=== PATIENT | male | born 1945 | race Caucasian/White ===

== ENCOUNTER 2017-07-06 15:20 | Observation (INO) | payer MEDICARE ==
[~2017-07-06] VITALS: Ht 180.3 cm; Wt 82.7 kg
[2017-07-06 15:32] VITALS: BP 188/91; PULSE 83; RESP 16; TEMP 98.7; O2SAT 96
[2017-07-06] MEDS ORDERED: SODIUM CHLORIDE 0.9% FLUSH 10 ML FLUSH IV FLUSH PRN ×2 (15:45→18:45)
[2017-07-06 16:02] LABS: AUTOMATED NEUTROPHIL # 7.4 TH/MM3 (1.8-7.7); BASOPHIL # 0.1 TH/MM3 (0-0.2); BASOPHIL % 0.8 % (0.0-2.0); EOSINOPHIL # 0.1 TH/MM3 (0-0.4); EOSINOPHIL % 1.2 % (0.0-4.0); HEMATOCRIT 43.7 % (39.0-51.0); LYMPH % 12.3 % (9.0-44.0); LYMPHOCYTE # 1.2 TH/MM3 (1.0-4.8); MEAN CELL VOLUME 89.5 FL (80.0-100.0); MEAN CORPUSCULAR HEMOGLOBIN 29.8 PG (27.0-34.0); MEAN CORPUSCULAR HGB CONC 33.3 % (32.0-36.0); MONO % 6.9 % (0.0-8.0); NEUT % 78.8 % (16.0-70.0); PLATELET COUNT 188 TH/MM3 (150-450); RED BLOOD COUNT 4.88 MIL/MM3 (4.50-5.90); RED CELL DISTRIBUTION WIDTH 12.1 % (11.6-17.2); WHITE BLOOD COUNT 9.4 TH/MM3 (4.0-11.0)
--- NOTE | 2017-07-06 16:10 | PD ---
HPI Chief Complaint: Abdominal Pain Time Seen by Provider: 15:47 Travel History International Travel<30 days: No Contact w/Intl Traveler<30days: No Traveled to known affect area: No History of Present Illness HPI Patient is a 72-year-old male who presents to emergency room with complaints of lower abdominal pain and constipation. Patient reports that his pain began this morning, reports that he had 3 small episodes of diarrhea and was unable to have a full bowel movement. Patient reports that he has mild to moderate lower abdominal crampy pain. Pain does not radiate and is constant in nature. Patient reports that the last time this happened was in September when he was diagnosed with bowel perforation due to ruptured diverticulitis. He reports that at that time, he was seen at [facility]. 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 Reports concern for possible bowel perforation or diverticulitis at this time. Patient denies any fevers or chills, patient denies any chest pain or shortness of breath. Patient reports nausea with no vomiting. PFSH Past Medical History Narrative Medical hx of diveriticulitis Hypertension: Yes Past Surgical History Prostatectomy: Yes Social History Alcohol Use: No Tobacco Use: No Substance Use: No Allergies-Medications (Allergen,Severity, Reaction): Coded Allergies: Penicillins (Verified Allergy, Severe, Anaphylaxis, 07/06/17) cyclobenzaprine (Verified Allergy, Severe, ABD PROBLEMS, 07/06/17) Reported Meds & Prescriptions Reported Meds & Active Scripts Active Reported Metamucil Original Texture (Psyllium Hydrophilic Mucilloid) 3.4 Gram/7 Gram Pow 1 Scoop PO DAILY PRN 1 rounded TEASPOON in 8 oz of liquid at the first sign of irregularity. Acidophilus (Lactobacillus Acidophilus) 500 Million Cell Tablet 1 Finasteride 5 Mg Tab 5 Mg PO DAILY Do not crush. Multi For Him 50+ (Multiple Vitamins W/ Minerals) 0.4 Mg-2 Mg-250 Mcg Tab Ranitidine (Ranitidine HCl) 150 Mg Tab 150 Mg PO DAILY Tamsulosin (Tamsulosin HCl) 0.4 Mg Cap 0.4 Mg PO HS Lisinopril 10 Mg Tab 10 Mg PO DAILY Review of Systems General / Constitutional: No: Fever, Chills Eyes: No: Visual changes HENT: No: Headaches Cardiovascular: No: Chest Pain or Discomfort Respiratory: No: Shortness of Breath Gastrointestinal: Positive: Nausea, Abdominal Pain, Constipation, No: Vomiting , Diarrhea Genitourinary: No: Dysuria Musculoskeletal: No: Pain Skin: No Rash Neurologic: No: Weakness Psychiatric: No: Depression Endocrine: No: Polydipsia Hematologic/Lymphatic: No: Easy Bruising Physical Exam Narrative GENERAL: moderate distress SKIN: Focused skin assessment warm/dry. HEAD: Atraumatic. Normocephalic. EYES: Pupils equal and round. No scleral icterus. No injection or drainage. ENT: No nasal bleeding or discharge. Mucous membranes pink and moist. NECK: Trachea midline. No JVD. CARDIOVASCULAR: Regular rate and rhythm. No murmur appreciated. RESPIRATORY: No accessory muscle use. Clear to auscultation. Breath sounds equal bilaterally. GASTROINTESTINAL: Abdomen soft, increased tenderness to lower abdomen, nondistended. Hepatic and splenic margins not palpable. MUSCULOSKELETAL: No obvious deformities. No clubbing. No cyanosis. No edema. NEUROLOGICAL: Awake and alert. No obvious cranial nerve deficits. Motor grossly within normal limits. Normal speech. PSYCHIATRIC: Appropriate mood and affect; insight and judgment normal. Data Data Last Documented VS Vital Signs Date Time Temp Pulse Resp B/P (MAP) Pulse Ox O2 Delivery O2 Flow Rate FiO2 07/06/17 15:32 98.7 83 16 188/91 (123) 96 Orders Orders Complete Blood Count With Diff (07/06/17 15:41) Comprehensive Metabolic Panel (07/06/17 15:41) Lipase (07/06/17 15:41) Prothrombin Time / Inr (Pt) (07/06/17 15:41) Act Partial Throm Time (Ptt) (07/06/17 15:41) Urinalysis - C+S If Indicated (07/06/17 15:41) Iv Access Insert/Monitor (07/06/17 15:41) Ecg Monitoring (07/06/17 15:41) NPO (07/06/17 15:41) Sodium Chloride 0.9% Flush (Ns Flush) (07/06/17 15:45) Ct Abd/Pel W Iv Contrast(Rout) (07/06/17 15:58) Chest, Single Ap (07/06/17 16:09) Diatrizoate Liq ( Gastroview Liq) (07/06/17 16:13) Oral Contrast - Adult (07/06/17 16:32) Iohexol 350 Inj (Omnipaque 350 Inj) (07/06/17 17:13) Ciprofloxacin 400 Mg Premix (Cipro 400 M (07/06/17 18:15) Metronidazole 500 Mg Inj (Flagyl 500 Mg (07/06/17 18:15) Admit Order (Ed Use Only) (07/06/17 18:38) Labs Laboratory Tests Test 07/06/17 15:50 07/06/17 16:54 White Blood Count 9.4 TH/MM3 Red Blood Count 4.88 MIL/MM3 Hemoglobin 14.5 GM/DL Hematocrit 43.7 % Mean Corpuscular Volume 89.5 FL Mean Corpuscular Hemoglobin 29.8 PG Mean Corpuscular Hemoglobin Concent 33.3 % Red Cell Distribution Width 12.1 % Platelet Count 188 TH/MM3 Mean Platelet Volume 7.8 FL Neutrophils (%) (Auto) 78.8 % Lymphocytes (%) (Auto) 12.3 % Monocytes (%) (Auto) 6.9 % Eosinophils (%) (Auto) 1.2 % Basophils (%) (Auto) 0.8 % Neutrophils # (Auto) 7.4 TH/MM3 Lymphocytes # (Auto) 1.2 TH/MM3 Monocytes # (Auto) 0.6 TH/MM3 Eosinophils # (Auto) 0.1 TH/MM3 Basophils # (Auto) 0.1 TH/MM3 CBC Comment DIFF FINAL Differential Comment Prothrombin Time 10.1 SEC Prothromb Time International Ratio 0.9 RATIO Activated Partial Thromboplast Time 27.3 SEC Blood Urea Nitrogen 19 MG/DL Creatinine 1.30 MG/DL Random Glucose 102 MG/DL Total Protein 7.1 GM/DL Albumin 3.6 GM/DL Calcium Level 8.8 MG/DL Alkaline Phosphatase 95 U/L Aspartate Amino Transf (AST/SGOT) 29 U/L Alanine Aminotransferase (ALT/SGPT) 42 U/L Total Bilirubin 0.6 MG/DL Sodium Level 139 MEQ/L Potassium Level 4.0 MEQ/L Chloride Level 105 MEQ/L Carbon Dioxide Level 27.8 MEQ/L Anion Gap 6 MEQ/L Estimat Glomerular Filtration Rate 54 ML/MIN Lipase 213 U/L Urine Color YELLOW Urine Turbidity CLEAR Urine pH 5.5 Urine Specific [place] 1.015 Urine Protein NEG mg/dL Urine Glucose (UA) NEG mg/dL Urine Ketones NEG mg/dL Urine Occult Blood SMALL Urine Nitrite NEG Urine Bilirubin NEG Urine Leukocyte Esterase NEG Urine RBC 0-3 /hpf Urine Squamous Epithelial Cells 0-5 /hpf Microscopic Urinalysis Comment CULT NOT INDICATED MDM Medical Decision Making Medical Screen Exam Complete: Yes Emergency Medical Condition: Yes Medical Record Reviewed: Yes Interpretation(s) Vital Signs Date Time Temp Pulse Resp B/P (MAP) Pulse Ox O2 Delivery O2 Flow Rate FiO2 07/06/17 15:32 98.7 83 16 188/91 (123) 96 Differential Diagnosis Differential includes diverticulitis, perforated bowel, electrolyte abnormality , cystitis Narrative Course Patient is a 72-year-old male with history of diverticulitis and perforated bowel in September who presents to ER with complaints of lower abdominal pain. Patient reports that he had 3 small bowel movements this morning and unable to have a complete bowel movement today. Patient reports crampy lower abdominal pain similar to when he had a perforated bowel in the past. Patient was placed on a environmental monitoring technician. CBC, CMP, UA ordered. X-ray of the chest ordered to evaluate for possible free air. CT the abdomen pelvis oral contrast ordered to evaluate for possible diverticulitis and bowel perforation Laboratory Tests Test 07/06/17 15:50 07/06/17 16:54 White Blood Count 9.4 TH/MM3 (4.0-11.0) Red Blood Count 4.88 MIL/MM3 (4.50-5.90) Hemoglobin 14.5 GM/DL (13.0-17.0) Hematocrit 43.7 % (39.0-51.0) Mean Corpuscular Volume 89.5 FL (80.0-100.0) Mean Corpuscular Hemoglobin 29.8 PG (27.0-34.0) Mean Corpuscular Hemoglobin Concent 33.3 % (32.0-36.0) Red Cell Distribution Width 12.1 % (11.6-17.2) Platelet Count 188 TH/MM3 (150-450) Mean Platelet Volume 7.8 FL (7.0-11.0) Neutrophils (%) (Auto) 78.8 % (16.0-70.0) Lymphocytes (%) (Auto) 12.3 % (9.0-44.0) Monocytes (%) (Auto) 6.9 % (0.0-8.0) Eosinophils (%) (Auto) 1.2 % (0.0-4.0) Basophils (%) (Auto) 0.8 % (0.0-2.0) Neutrophils # (Auto) 7.4 TH/MM3 (1.8-7.7) Lymphocytes # (Auto) 1.2 TH/MM3 (1.0-4.8) Monocytes # (Auto) 0.6 TH/MM3 (0-0.9) Eosinophils # (Auto) 0.1 TH/MM3 (0-0.4) Basophils # (Auto) 0.1 TH/MM3 (0-0.2) CBC Comment DIFF FINAL Differential Comment Prothrombin Time 10.1 SEC (9.8-11.6) Prothromb Time International Ratio 0.9 RATIO Activated Partial Thromboplast Time 27.3 SEC (24.3-30.1) Blood Urea Nitrogen 19 MG/DL (7-18) Creatinine 1.30 MG/DL (0.60-1.30) Random Glucose 102 MG/DL (74-106) Total Protein 7.1 GM/DL (6.4-8.2) Albumin 3.6 GM/DL (3.4-5.0) Calcium Level 8.8 MG/DL (8.5-10.1) Alkaline Phosphatase 95 U/L (45-117) Aspartate Amino Transf (AST/SGOT) 29 U/L (15-37) Alanine Aminotransferase (ALT/SGPT) 42 U/L (12-78) Total Bilirubin 0.6 MG/DL (0.2-1.0) Sodium Level 139 MEQ/L (136-145) Potassium Level 4.0 MEQ/L (3.5-5.1) Chloride Level 105 MEQ/L (98-107) Carbon Dioxide Level 27.8 MEQ/L (21.0-32.0) Anion Gap 6 MEQ/L (5-15) Estimat Glomerular Filtration Rate 54 ML/MIN (>89) Lipase 213 U/L (73-393) Urine Color YELLOW (YELLW/STRAW) Urine Turbidity CLEAR (CLEAR) Urine pH 5.5 (5.0-8.5) Urine Specific [place] 1.015 (1.002-1.035) Urine Protein NEG mg/dL (NEG-TRACE) Urine Glucose (UA) NEG mg/dL (NEG) Urine Ketones NEG mg/dL (NEG) Urine Occult Blood SMALL (NEG) Urine Nitrite NEG (NEG) Urine Bilirubin NEG (NEG) Urine Leukocyte Esterase NEG (NEG) Urine RBC 0-3 /hpf (0-3) Urine Squamous Epithelial Cells 0-5 /hpf (0-5) Microscopic Urinalysis Comment CULT NOT INDICATED Last Impressions Chest X-Ray 07/06/17 1609 Signed Impressions: Service Date/Time: Thursday, July 06, 2017 16:57 - CONCLUSION: No acute disease. Braden Rodriguez MD Abdomen/Pelvis CT 07/06/17 1558 Signed Impressions: Service Date/Time: Thursday, July 06, 2017 17:09 - CONCLUSION: 1. Sigmoid diverticulosis with acute diverticulitis in the proximal sigmoid colon. No evidence of pericolonic abscess. 2. Simple hepatic cysts. 3. No other significant abnormality. Bon Mari MD Patient with sigmoid diverticulosis with acute diverticulitis in the proximal colon. Patient uncomfortable to be discharged home as he lives by himself, patient is concern about possible bowel perforation with his diverticulitis. Patient was given Cipro as well as IV Flagyl. Patient will be admitted to medicine service for treatment of acute diverticulitis. Case reviewed with Dr. Bowden who accepts pt to service Diagnosis Primary Impression: Acute diverticulitis Admitting Information Admitting Physician Requests: Admit Joselin Tran DO Jul 06, 2017 16:10
[2017-07-06 16:13] LABS: CHLORIDE 105 MEQ/L (98-107); SODIUM (NA) 139 MEQ/L (136-145)
[2017-07-06] MEDS ORDERED: DIATRIZOATE MEGLUM/DIATRIZOATE SOD 9 ML CUP ONE (16:13)
[2017-07-06 16:17] LABS: ANION GAP 6 MEQ/L (5-15); APTT (PATIENT) 27.3 SEC (24.3-30.1); BICARBONATE 27.8 MEQ/L (21.0-32.0); BLOOD UREA NITROGEN 19 MG/DL (7-18); INTERNATIONAL NORMALIZED RATIO 0.9 RATIO; PROTHROMBIN TIME - PATIENT 10.1 SEC (9.8-11.6)
[2017-07-06 16:19] LABS: ALT (GPT) 42 U/L (12-78); AST (GOT) 29 U/L (15-37)
[2017-07-06 16:20] LABS: GLOMERULAR FILTRATION RATE 54 ML/MIN (>89)
[2017-07-06] MEDS ORDERED: META48.53 PO (16:20)
[2017-07-06] MEDS ORDERED: RANI150T PO (16:20)
[2017-07-06] MEDS ORDERED: TAMS0.4C4 PO (16:20)
[2017-07-06] MEDS ORDERED: FINA5TAB2 PO (16:20)
[2017-07-06] MEDS ORDERED: LISI10TA3 PO (16:20)
[2017-07-06] MEDS ORDERED: LACTTAB5 (16:20)
[2017-07-06] MEDS ORDERED: MULTTAB23 (16:20)
[2017-07-06 16:21] LABS: TOTAL BILIRUBIN ADULT 0.6 MG/DL (0.2-1.0)
[2017-07-06 16:22] LABS: ALKALINE PHOSPHATASE 95 U/L (45-117)
[2017-07-06 16:24] LABS: HEMO FLAGS DIFF FINAL
[2017-07-06 17:03] LABS: BLOOD, URINE SMALL (NEG); GLUCOSE,URINE NEG (NEG); KETONE, URINE NEG (NEG); NITRITE,URINE NEG (NEG); PH, URINE 5.5 (5.0-8.5)
[2017-07-06 17:13] LABS: URINE COLOR YELLOW (YELLW/STRAW)
[2017-07-06] MEDS ORDERED: IOHEXOL 350 MG/ML 10 ML VIAL (for RAD DIAG) IVCONTRAST ONE (17:13)
[2017-07-06 17:14] LABS: COMMENT (UR) CULT NOT INDICATED; CULTURE IF INDICATED CULT NOT INDICATED; RBC, URINE 0-3 /hpf (0-3); SQUAMOUS EPITHELIAL CELL URINE 0-5 /hpf (0-5)
--- NOTE | 2017-07-06 17:39 | RADRPT ---
EXAM DATE/TIME: 07/06/2017 17:09 [facility] COMPARISON: No previous studies available for comparison. INDICATIONS : Lower abdominal discomfort. IV CONTRAST: 95 cc Omnipaque 350 (iohexol) IV ORAL CONTRAST: Prescribed oral contrast ingested. RADIATION DOSE: 15.37 CTDIvol (mGy) MEDICAL HISTORY : Hypertension. Carcinoma, pancreas. SURGICAL HISTORY : Prostatectomy. ENCOUNTER: Initial ACUITY: 1 day PAIN SCALE: 4/10 LOCATION: lower quadrant TECHNIQUE: Volumetric scanning of the abdomen and pelvis was performed. Using automated exposure control and ad justment of the mA and/or kV according to patient size, radiation dose was kept as low as reasonably achievable to obtain optimal diagnostic quality images. DICOM format image data is available electro nically for review and comparison. FINDINGS: LOWER LUNGS: The visualized lower lungs are clear. LIVER: Homogeneous density without solid lesion. Several simple cysts identified throughout the liver. Ther e is no dilation of the biliary tree. No calcified gallstones. SPLEEN: Normal size without lesion. PANCREAS: Within normal limits. KIDNEYS: Normal in size and shape. There is no mass, stone or hydronephrosis. ADRENAL GLANDS: Within normal limits. VASCULAR: There is no aortic aneurysm. BOWEL/MESENTERY: Short segmental wall thickening with mild pericolonic inflammation and associated diverticula are see n in the proximal sigmoid colon. Gastrointestinal tract is otherwise unremarkable. ABDOMINAL WALL: Within normal limits. RETROPERITONEUM: There is no lymphadenopathy. BLADDER: No wall thickening or mass. REPRODUCTIVE: Within normal limits. INGUINAL: There is no lymphadenopathy or hernia. MUSCULOSKELETAL: Within normal limits for patient age. CONCLUSION: 1. Sigmoid diverticulosis with acute diverticulitis in the proximal sigmoid colon. No evidence of per icolonic abscess. 2. Simple hepatic cysts. 3. No other significant abnormality. Bon Mari MD on July 06, 2017 at 17:34 Board Certified Radiologist. This report was verified electronically.
--- NOTE | 2017-07-06 17:42 | RADRPT ---
EXAM DATE/TIME: 07/06/2017 16:57 [facility] COMPARISON: No previous studies available for comparison. INDICATIONS : Epigastric discomfort for a few days. MEDICAL HISTORY : Hypertension. Hypercholesterolemia. Carcinoma, prostatic. SURGICAL HISTORY : Prostatectomy. Paratrigeminal sympathectomy. ENCOUNTER: Initial ACUITY: 2 days PAIN SCORE: 4/10 LOCATION: Bilateral chest FINDINGS: A single view of the chest demonstrates the lungs to be symmetrically aerated without evidence of mas s, infiltrate or effusion. The cardiomediastinal contours are unremarkable. Osseous structures are intact. CONCLUSION: No acute disease. Braden Rodriguez MD on July 06, 2017 at 17:41 Board Certified Radiologist. This report was verified electronically.
[2017-07-06] MEDS ORDERED: metroNIDAZOLE 500 MG INJ 100 ML IV ONE (18:15)
[2017-07-06] MEDS ORDERED: CIPROFLOXACIN 400 MG PREMIX 200 ML IV ONE (18:15)
[2017-07-06] MEDS ORDERED: ACETAMINOPHEN/HYDROcodone 325 MG/5 MG TAB PO PRN (18:45)
[2017-07-06] MEDS ORDERED: MAGNESIUM HYDROXIDE SUSP 30 ML CUP PO PRN (18:45)
[2017-07-06] MEDS ORDERED: ACETAMINOPHEN/HYDROcodone 325 MG/10 MG TAB PO PRN (18:45)
[2017-07-06] MEDS ORDERED: NALOXONE HCL 0.4 MG/ML AMP IV PUSH PRN (18:45)
[2017-07-06] MEDS ORDERED: ONDANSETRON HCL 4 MG/2 ML VIAL IVP PRN (18:45)
[2017-07-06 19:15] VITALS: BP 148/72; PULSE 78; RESP 16; O2SAT 98
--- NOTE | 2017-07-06 19:29 | HHI.HP ---
[facility] Isaura Kilpatrick M.D. Admission Diagnosis sigmoid diverticulitis Diagnoses: (1) Acute diverticulitis Travel History International Travel<30 Days: No Contact w/Intl Traveler <30 Da: No Traveled to Known Affected Are: No History of Present Illness Mr. Mckeon is a 72 year old male. He came into the hospital today secondary to lower abdominal pain. This is been progressive over the last 2 days. He has a history of diverticulosis and has had diverticulitis with perforation in the past. He's concerned due to the weight feels that he may be at risk for another perforation. No fevers have occurred. Imaging shows no free air. Clinically he is symptomatic for diverticulitis and antibiotics have been started. Hypertension is another condition he has a baseline, he also has a past history of prostate cancer and has had a prostatectomy for this.. No other medical conditions reported. No other complaints tonight. Review of Systems Constitutional: DENIES: Fatigue, Fever, Weight gain, Weight loss, Chills Eyes: DENIES: Blurred vision, Diplopia, Eye inflammation, Eye pain Ears, nose, mouth, throat: DENIES: Tinnitus, Hearing loss, Vertigo Respiratory: DENIES: Apneas, Wheezing, Shortness of breath Cardiovascular: DENIES: Chest pain, Palpitations, Syncope Gastrointestinal: COMPLAINS OF: Abdominal pain, DENIES: Black stools, Bloody stools, Diarrhea Musculoskeletal: DENIES: Joint pain, Muscle aches, Stiffness, Joint Swelling Integumentary: DENIES: Abnormal pigmentation, Nail changes, Pruritus, Rash Hematologic/lymphatic: DENIES: Bruising, Lymphadenopathy Immunologic/allergic: DENIES: Eczema, Urticaria Neurologic: DENIES: Abnormal gait, Headache, Paresthesias Psychiatric: DENIES: Anxiety, Confusion, Hallucinations Past Family Social History Past Medical History Hypertension Diverticulosis History of diverticulitis perforation Prostate cancer history Past Surgical History Prostatectomy Reported Medications Reported Meds & Active Scripts Active Reported Metamucil Original Texture (Psyllium Hydrophilic Mucilloid) 3.4 Gram/7 Gram Pow 1 Scoop PO DAILY PRN 1 rounded TEASPOON in 8 oz of liquid at the first sign of irregularity. Acidophilus (Lactobacillus Acidophilus) 500 Million Cell Tablet 1 Finasteride 5 Mg Tab 5 Mg PO DAILY Do not crush. Multi For Him 50+ (Multiple Vitamins W/ Minerals) 0.4 Mg-2 Mg-250 Mcg Tab Ranitidine (Ranitidine HCl) 150 Mg Tab 150 Mg PO DAILY Tamsulosin (Tamsulosin HCl) 0.4 Mg Cap 0.4 Mg PO HS Lisinopril 10 Mg Tab 10 Mg PO DAILY Allergies: Coded Allergies: Penicillins (Verified Allergy, Severe, Anaphylaxis, 07/06/17) cyclobenzaprine (Verified Allergy, Severe, ABD PROBLEMS, 07/06/17) Family History Coronary artery disease and Alzheimer's and father CVA and mother Diabetes mellitus type 2 in both of his brothers Social History No past history of smoking No past history of alcohol abuse No illicit drug abuse Physical Exam Vital Signs Vital Signs Date Time Temp Pulse Resp B/P (MAP) Pulse Ox O2 Delivery O2 Flow Rate FiO2 07/06/17 19:15 78 16 148/72 (97) 98 Room Air 07/06/17 15:32 98.7 83 16 188/91 (123) 96 Physical Exam GENERAL: NAD, A&Ox3 HEAD: Normocephalic. NECK: Supple, trachea midline. No lymphadenopathy. EYES: No scleral icterus. No injection or drainage. CARDIOVASCULAR: Regular rate and rhythm without murmurs, gallops, or rubs. RESPIRATORY: Breath sounds equal bilaterally. No accessory muscle use. GASTROINTESTINAL: Abdomen soft. Moderately distended lower abdomen. Tenderness subumbilically with palpation. MUSCULOSKELETAL: No cyanosis, or edema. SKIN: Warm and dry. NEURO: No focal neurological deficitis. Laboratory Laboratory Tests Test 07/06/17 15:50 07/06/17 16:54 White Blood Count 9.4 Red Blood Count 4.88 Hemoglobin 14.5 Hematocrit 43.7 Mean Corpuscular Volume 89.5 Mean Corpuscular Hemoglobin 29.8 Mean Corpuscular Hemoglobin Concent 33.3 Red Cell Distribution Width 12.1 Platelet Count 188 Mean Platelet Volume 7.8 Neutrophils (%) (Auto) 78.8 Lymphocytes (%) (Auto) 12.3 Monocytes (%) (Auto) 6.9 Eosinophils (%) (Auto) 1.2 Basophils (%) (Auto) 0.8 Neutrophils # (Auto) 7.4 Lymphocytes # (Auto) 1.2 Monocytes # (Auto) 0.6 Eosinophils # (Auto) 0.1 Basophils # (Auto) 0.1 CBC Comment DIFF FINAL Differential Comment Prothrombin Time 10.1 Prothromb Time International Ratio 0.9 Activated Partial Thromboplast Time 27.3 Blood Urea Nitrogen 19 Creatinine 1.30 Random Glucose 102 Total Protein 7.1 Albumin 3.6 Calcium Level 8.8 Alkaline Phosphatase 95 Aspartate Amino Transf (AST/SGOT) 29 Alanine Aminotransferase (ALT/SGPT) 42 Total Bilirubin 0.6 Sodium Level 139 Potassium Level 4.0 Chloride Level 105 Carbon Dioxide Level 27.8 Anion Gap 6 Estimat Glomerular Filtration Rate 54 Lipase 213 Urine Color YELLOW Urine Turbidity CLEAR Urine pH 5.5 Urine Specific [place] 1.015 Urine Protein NEG Urine Glucose (UA) NEG Urine Ketones NEG Urine Occult Blood SMALL Urine Nitrite NEG Urine Bilirubin NEG Urine Leukocyte Esterase NEG Urine RBC 0-3 Urine Squamous Epithelial Cells 0-5 Microscopic Urinalysis Comment CULT NOT INDICATED Result Diagram: 07/06/17 [id number] Caprini VTE Risk Assessment Caprini VTE Risk Assessment: No/Low Risk (score <= 1) VTE Pharm Contraindication: High risk for bleeding Caprini Risk Assessment Model Point Value = 1 Point Value = 2 Point Value = 3 Point Value = 5 Age 41-60 Minor surgery BMI > 25 kg/m2 Swollen legs Varicose veins or History of unexplained or recurrent spontaneous Oral contraceptives or hormone replacement Sepsis (< 1 month) Serious lung disease, including pneumonia (< 1 month) Abnormal pulmonary function Acute myocardial infarction Congestive heart failure (< 1 month) History of inflammatory bowel disease Medical patient at bed rest Age 61-74 Arthroscopic surgery Major open surgery (> 45 min) Laparoscopic surgery (> 45 min) Malignancy Confined to bed (> 72 hours) Immobilizing plaster cast Central venous access Age >= 75 History of VTE Family history of VTE Factor V Leiden Prothrombin [id number] Lupus anticoagulant Anticardiolipin antibodies Elevated serum homocysteine Heparin-induced thrombocytopenia Other congenital or acquired thrombophilia Stroke (< 1 month) Elective arthroplasty Hip, pelvis, or leg fracture Acute spinal cord injury (< 1 month) Prophylaxis Regimen Total Risk Factor Score Risk Level Prophylaxis Regimen 0-1 Low Early ambulation 2 Moderate Order ONE of the following: *Sequential Compression Device (SCD) *Heparin 5000 units SQ BID 3-4 Higher Order ONE of the following medications: *Heparin 5000 units SQ TID *Enoxaparin/Lovenox 40 mg SQ daily (WT < 150 kg, CrCl > 30 mL/min) *Enoxaparin/Lovenox 30 mg SQ daily (WT < 150 kg, CrCl > 10-29 mL/min) *Enoxaparin/Lovenox 30 mg SQ BID (WT < 150 kg, CrCl > 30 mL/min) AND/OR *Sequential Compression Device (SCD) 5 or more Highest Order ONE of the following medications: *Heparin 5000 units SQ TID (Preferred with Epidurals) *Enoxaparin/Lovenox 40 mg SQ daily (WT < 150 kg, CrCl > 30 mL/min) *Enoxaparin/Lovenox 30 mg SQ daily (WT < 150 kg, CrCl > 10-29 mL/min) *Enoxaparin/Lovenox 30 mg SQ BID (WT < 150 kg, CrCl > 30 mL/min) AND *Sequential Compression Device (SCD) Assessment and Plan Problem List: (1) Acute diverticulitis ICD Code: K57.92 - Diverticulitis of intestine, part unspecified, without perforation or abscess without bleeding Status: Acute Assessment and Plan Assessment and plan 72-year-old male admitted secondary to acute diverticulitis and hypertensive urgency Acute diverticulitis Ciprofloxacin Metronidazole Monitor clinically for improvement Liquid diet for now Probiotics Hypertensive urgency on hypertension Continue baseline treatments Added IV enalapril as needed Monitor blood pressures History of prostate cancer Follows in outpatient DVT prophylaxis SCDs, due to bleeding risk Aryan Bowden MD Jul 06, 2017 19:29
[2017-07-06] MEDS ORDERED: ENALAPRILAT 1.25 MG/ML VIAL IV PUSH PRN (19:30)
[2017-07-06] MEDS ORDERED: TAMSULOSIN HCL 0.4 MG CAP PO SCH (21:00)
[2017-07-06 21:32] VITALS: BP 175/85
[2017-07-06] MEDS: FAMOTIDINE 20 MG TAB PO SCH (21:34)
[2017-07-06] MEDS: PSYLLIUM FIBER SF/GF 6 GM POWD PKT PO SCH (21:34)
[2017-07-06] MEDS: SODIUM CHLORIDE 0.9% FLUSH 10 ML FLUSH IV FLUSH SCH (21:35)
[2017-07-06 22:00] VITALS: BP 174/96; O2SAT 93
[2017-07-06 23:00] VITALS: BP 147/81
[2017-07-07] VITALS: TEMP 98.6
[2017-07-07] MEDS: CIPROFLOXACIN 400 MG PREMIX 200 ML IV SCH ×2 (02:20→09:51)
[2017-07-07 03:53] VITALS: BP 142/79
[2017-07-07 04:00] VITALS: TEMP 98.9
[2017-07-07] MEDS: metroNIDAZOLE 500 MG INJ 100 ML IV SCH ×2 (04:25→12:22)
[2017-07-07] MEDS ORDERED: ACETAMINOPHEN 325 MG TAB PO ONE (04:30)
[2017-07-07 04:51] LABS: AUTOMATED NEUTROPHIL # 5.4 TH/MM3 (1.8-7.7); BASOPHIL % 0.5 % (0.0-2.0); EOSINOPHIL # 0.1 TH/MM3 (0-0.4); HEMATOCRIT 41.8 % (39.0-51.0); HEMO FLAGS DIFF FINAL; LYMPH % 14.1 % (9.0-44.0); MEAN CELL VOLUME 91.1 FL (80.0-100.0); MEAN CORPUSCULAR HEMOGLOBIN 30.8 PG (27.0-34.0); MEAN CORPUSCULAR HGB CONC 33.8 % (32.0-36.0); NEUT % 73.4 % (16.0-70.0); PLATELET COUNT 171 TH/MM3 (150-450); RED BLOOD COUNT 4.58 MIL/MM3 (4.50-5.90); RED CELL DISTRIBUTION WIDTH 12.3 % (11.6-17.2); WHITE BLOOD COUNT 7.3 TH/MM3 (4.0-11.0)
[2017-07-07 04:57] LABS: CHLORIDE 104 MEQ/L (98-107); POTASSIUM 3.8 MEQ/L (3.5-5.1); SODIUM (NA) 139 MEQ/L (136-145)
[2017-07-07 05:19] LABS: ALKALINE PHOSPHATASE 74 U/L (45-117); ALT (GPT) 33 U/L (12-78); ANION GAP 6 MEQ/L (5-15); AST (GOT) 19 U/L (15-37); BICARBONATE 29.5 MEQ/L (21.0-32.0); BLOOD UREA NITROGEN 15 MG/DL (7-18); GLOMERULAR FILTRATION RATE 66 ML/MIN (>89); TOTAL BILIRUBIN ADULT 1.2 MG/DL (0.2-1.0)
[2017-07-07 08:00] VITALS: BP 132/69; PULSE 64; RESP 16; TEMP 97.8; O2SAT 96
[2017-07-07] MEDS ORDERED: LISINOPRIL 10 MG TAB PO SCH (09:00)
[2017-07-07] MEDS ORDERED: FINASTERIDE 5 MG TAB PO SCH (09:00)
[2017-07-07] MEDS: PSYLLIUM FIBER SF/GF 6 GM POWD PKT PO SCH (09:44)
[2017-07-07] MEDS: FAMOTIDINE 20 MG TAB PO SCH (09:44)
[2017-07-07] MEDS: LACTOBACILLUS ACIDOPHILUS TAB PO SCH ×2 (09:44→12:22)
[2017-07-07] MEDS: SODIUM CHLORIDE 0.9% FLUSH 10 ML FLUSH IV FLUSH SCH (09:51)
[2017-07-07 10:42] VITALS: BP 124/73; PULSE 60; RESP 16; O2SAT 96
[2017-07-07] MEDS ORDERED: METR-1 PO (13:33)
[2017-07-07] MEDS ORDERED: CIPR-9 PO (13:33)
--- NOTE | 2017-07-07 13:37 | HHI.DS ---
Discharge Summary Admission Date Jul 06, 2017 at 18:38 Discharge Date: Jul 07, 2017 Admitting Diagnosis sigmoid diverticulitis (1) Acute diverticulitis ICD Code: K57.92 - Diverticulitis of intestine, part unspecified, without perforation or abscess without bleeding Status: Acute Procedures None Brief History - From Admission Mr. Mckeon is a 72 year old male. He came into the hospital today secondary to lower abdominal pain. This is been progressive over the last 2 days. He has a history of diverticulosis and has had diverticulitis with perforation in the past. He's concerned due to the weight feels that he may be at risk for another perforation. No fevers have occurred. Imaging shows no free air. Clinically he is symptomatic for diverticulitis and antibiotics have been started. Hypertension is another condition he has a baseline, he also has a past history of prostate cancer and has had a prostatectomy for this.. No other medical conditions reported. No other complaints tonight. CBC/BMP: 07/07/17 0430 07/07/17 0430 Significant Findings Laboratory Tests Test 07/06/17 15:50 07/06/17 16:54 07/07/17 04:30 Neutrophils (%) (Auto) 78.8 % (16.0-70.0) 73.4 % (16.0-70.0) Blood Urea Nitrogen 19 MG/DL (7-18) Estimat Glomerular Filtration Rate 54 ML/MIN (>89) 66 ML/MIN (>89) Urine Occult Blood SMALL (NEG) Monocytes (%) (Auto) 11.0 % (0.0-8.0) Total Protein 6.2 GM/DL (6.4-8.2) Albumin 3.0 GM/DL (3.4-5.0) Total Bilirubin 1.2 MG/DL (0.2-1.0) Hospital Course Mr. Mckeon is a 72 year old male. He came in with severe abdominal pain which was related to a diverticulitis. He has a history of diverticulitis with microperforation (no surgery was needed). Today he is feeling better without fevers or any elevation in WBCs. Medically stable for discharge to home on oral antibiotic treatments. Pt Condition on Discharge: Stable Discharge Disposition: Discharge Home Discharge Time: <= 30 minutes Discharge Instructions DIET: Follow Instructions for: As Tolerated, No Restrictions Activities you can perform: Regular-No Restrictions Follow up Referrals: PCP Follow-up - 2 Weeks New Medications: Ciprofloxacin (Cipro) 500 Mg Tab 500 MG PO BID for Infection, #14 TAB 0 Refills Metronidazole (Flagyl) 500 Mg Tab 500 MG PO TID for Infection, #21 TAB 0 Refills Continued Medications: Finasteride (Finasteride) 5 Mg Tab 5 MG PO DAILY for Manage Prostate Problems, #30 TAB 0 Refills Do not crush. Lactobacillus Acidophilus (Acidophilus) 500 Million Cell Tablet 1 Lisinopril (Lisinopril) 10 Mg Tab 10 MG PO DAILY, #30 TAB 0 Refills Multiple Vitamins W/ Minerals (Multi For Him 50+) 0.4 Mg-2 Mg-250 Mcg Tab Psyllium Powder (Metamucil Original Texture) 3.4 Gram/7 Gram Pow 1 SCOOP PO DAILY PRN for CONSTIPATION, CONTAINER 0 Refills 1 rounded TEASPOON in 8 oz of liquid at the first sign of irregularity. Ranitidine (Ranitidine) 150 Mg Tab 150 MG PO DAILY for Heartburn Management, #30 TAB 0 Refills Tamsulosin (Tamsulosin) 0.4 Mg Cap 0.4 MG PO HS for Manage Prostate Problems, #30 CAP 0 Refills Aryan Bowden MD Jul 07, 2017 13:37
== END 2017-07-07 14:41 | disposition home or self-care (01) ==
LOC: PHED 15:20 → PHEDA 18:38 → PHICU 21:22
PROVIDERS: ADMIT Hospitalist; ATTEND Hospitalist
DX: K57.32 Diverticulitis of large intestine without perforation or abscess without bleeding (principal); I16.0 Hypertensive urgency; I10 Essential (primary) hypertension; E78.00 Pure hypercholesterolemia, unspecified; K76.89 Other specified diseases of liver; Z85.46 Personal history of malignant neoplasm of prostate
CPT/HCPCS: 71010; 74177; 80053; 81001; 83690; 85025; 85610; 85730; 96365; 96366; 96368; 96375; G0378; J0744; Q9963; Q9967

== ENCOUNTER 2018-09-22 22:11 | Inpatient (IN) ==
[2018-09-22] MEDS ORDERED: Diatrizoate Meglum/Diatrizoate Sod Liq 9 ML UDC PO ONE ×2 (22:59→23:14)
[2018-09-22 23:18] LABS: Baso # (Auto) 0.2 th/mm3 (0.0-0.2); Baso % (Auto) 2.3 % (0.0-2.0); Eos # (Auto) 0.1 th/mm3 (0.0-0.4); Eos % (Auto) 1.1 % (0.0-4.0); Hematocrit 43.7 % (39.0-51.0); Hemoglobin 15.1 gm/dL (13.0-17.0); Lymph % (Auto) 11.6 % (9.0-44.0); Mean Corpuscular HGB Conc 34.6 % (32.0-36.0); Mean Corpuscular Hemoglobin 31.5 pg (27.0-34.0); Mean Platelet Volume 8.2 fL (7.0-11.0); Mono # (Auto) 0.7 th/mm3 (0.0-0.9); Mono % (Auto) 8.1 % (0.0-8.0); Neut # (Auto) 6.6 th/mm3 (1.8-7.7); Neut % (Auto) 76.9 % (16.0-70.0); Platelet Count 168 th/mm3 (150-450); Red Cell Distribution Width 12.1 % (11.6-17.2); White Blood Count 8.6 th/mm3 (4.0-11.0)
[2018-09-22 23:32] LABS: Chloride 105 meq/L (98-107); Potassium 3.7 meq/L (3.5-5.1); Sodium 138 meq/L (136-145)
[2018-09-22 23:35] LABS: Albumin 3.2 g/dL (3.4-5.0); Anion Gap 7 meq/L (5-15); Calcium 8.5 mg/dL (8.5-10.1); Carbon Dioxide 25.6 meq/L (21.0-32.0); Lipase 187 U/L (73-393)
[2018-09-22 23:36] LABS: Blood Urea Nitrogen 18 mg/dL (7-18); Glucose,Random 102 mg/dL (74-106)
[2018-09-22 23:38] LABS: Alanine Aminotransferase 33 U/L (12-78); Aspartate Aminotransferase 21 U/L (15-37)
[2018-09-22 23:39] LABS: Glomerular Filtration Rate 60 mL/min (>89)
[2018-09-22 23:41] LABS: Alkaline Phosphatase 82 U/L (45-117)
[2018-09-23] MEDS ORDERED: Sodium Chlor 0.9% Inj 500 ML IV.SIG ONE (01:02)
[2018-09-23] MEDS ORDERED: Morphine Inj 4 MG/ML Vial IV.PUSH ONE (01:02)
--- NOTE | 2018-09-23 01:06 | ED ---
HPI General Chief Complaint: Abdominal Pain Stated Complaint: lower abd pain X2days Time Seen by Provider: 09/22/18 22:34 Source: patient Mode of arrival: ambulatory Limitations: no limitations History of Present Illness HPI narrative: Patient is a 73-year-old male who has history of diverticulitis for the last few days he has had left lower quadrant and suprapubic tenderness achy and difficulty moving his bowels. Just small amounts of stool comes out associated with the pain called his doctor who was unable to see him but called in for Cipro and Flagyl p.o. patient took 1 dose tonight pain continues he comes to the ER. Year ago he had a diverticulitis that led to some microperforation was admitted he is worried that could be happening again is very nervous. She is awake alert mild tenderness to the abdomen he does not appear toxic he does not appear to be in any severe distress Related Data Home Medications Medication Instructions Recorded Confirmed finasteride 5 mg PO DAILY 09/22/18 09/22/18 lisinopril 10 mg PO DAILY 09/22/18 09/22/18 ranitidine HCl 150 mg PO DAILY 09/22/18 09/22/18 tamsulosin 0.4 mg PO DAILY 09/22/18 09/22/18 Allergies Allergy/AdvReac Type Severity Reaction Status Date / Time cyclobenzaprine Allergy Severe ABD Verified 07/06/17 15:34 PROBLEMS Penicillins Allergy Severe Anaphylaxis Verified 07/06/17 15:34 [facility] Medical History Medical History Diverticulitis large intestine w/o perforation or abscess w/bleeding (Acute) Hypertension (Acute) Prostate CA (Acute) Social History Social History Substance History: No History of Abuse Second Hand Smoke Exposure: No Smoking Status: Never smoker How Often Do You Have a Drink Containing Alcohol: Never Recent Travel in [facility] within the Last 8 Weeks: No Recent Out of Country Travel within the Last 8 Weeks: No Immunization History Tetanus Immunization: <5 Years Course Initial Documented Vital Signs Temperature 98.3 F 09/22/18 22:20 Pulse Rate 89 09/22/18 22:20 Respiratory Rate 18 09/22/18 22:20 Blood Pressure 190/89 H 09/22/18 22:20 Pulse Oximetry 96 09/22/18 22:20 Last Documented Vital Signs Temperature 98.3 F 09/22/18 22:20 Pulse Rate 89 09/22/18 22:20 Respiratory Rate 18 09/22/18 22:20 Blood Pressure 190/89 H 09/22/18 22:20 Pulse Oximetry 96 09/22/18 22:20 Medical Decision Making Lab Data Result diagrams: 09/22/18 23:07 09/22/18 23:07 Lab Results 09/22/18 09/22/18 09/22/18 Range/Units 23:07 23:07 23:07 CBC w Diff Auto diff final WBC 8.6 (4.0-11.0) th/mm3 RBC 4.80 (4.50-5.90) mil/mm3 Hgb 15.1 (13.0-17.0) gm/dL Hct 43.7 (39.0-51.0) % MCV 91.0 (80.0-100.0) fL MCH 31.5 (27.0-34.0) pg MCHC 34.6 (32.0-36.0) % RDW 12.1 (11.6-17.2) % Plt Count 168 (150-450) th/mm3 MPV 8.2 (7.0-11.0) fL Neut % (Auto) 76.9 H (16.0-70.0) % Lymph % (Auto) 11.6 (9.0-44.0) % [place] % (Auto) 8.1 H (0.0-8.0) % Eos % (Auto) 1.1 (0.0-4.0) % Baso % (Auto) 2.3 H (0.0-2.0) % Neut # (Auto) 6.6 (1.8-7.7) th/mm3 Lymph # (Auto) 1.0 (1.0-4.8) th/mm3 [place] # (Auto) 0.7 (0.0-0.9) th/mm3 Eos # (Auto) 0.1 (0.0-0.4) th/mm3 Baso # (Auto) 0.2 (0.0-0.2) th/mm3 WBC Differential . Differential Comment . Sodium 138 (136-145) meq/L Potassium 3.7 (3.5-5.1) meq/L Chloride 105 (98-107) meq/L Carbon Dioxide 25.6 (21.0-32.0) meq/L Anion Gap 7 (5-15) meq/L BUN 18 (7-18) mg/dL Creatinine 1.20 (0.60-1.30) mg/dL Estimated GFR 60 L (>89) mL/min Random Glucose 102 (74-106) mg/dL Lactic Acid 1.2 (0.4-2.0) mmol/L Calcium 8.5 (8.5-10.1) mg/dL Total Bilirubin 1.2 H (0.2-1.0) mg/dL AST 21 (15-37) U/L ALT 33 (12-78) U/L Alkaline Phosphatase 82 (45-117) U/L Total Protein 7.0 (6.4-8.2) g/dL Albumin 3.2 L (3.4-5.0) g/dL Lipase 187 (73-393) U/L Discharge Plan Physicians Team ED Provider: Lee Arana Primary Care Provider: Isaura Kilpatrick Rxs /Orders / Referrals /Forms Prescriptions: No Action tamsulosin 0.4 mg Capsule 0.4 mg PO DAILY RF: 0 lisinopril 10 mg Tablet 10 mg PO DAILY RF: 0 ranitidine HCl 150 mg Capsule 150 mg PO DAILY RF: 0 finasteride 5 mg Tablet 5 mg PO DAILY RF: 0 Status ED Status: With Doctor
--- NOTE | 2018-09-23 02:03 | CT ---
EXAM DATE: 09/23/2018 1:48 AM EST AGE/SEX: 73 years / Male INDICATIONS: Lower abdominal pain for two days. Possible diverticulitis. CLINICAL DATA: This is the patient's initial encounter. Patient reports that signs and symptoms have been present for 1 day and indicates a pain score of 6/10. MEDICAL/SURGICAL HISTORY: . Diverticulitis large intestine w/o perforation or abscess w/bleedin g. Hypertension. Prostate cancer. . ORAL CONTRAST: Prescribed oral contrast ingested. RADIATION DOSE: 13.37 CTDI (mGy) COMPARISON: [facility] [place], CT ABDOMEN & PELVIS W CONTRAST, 07/06/2017. . TECHNIQUE: Multiple contiguous axial images were obtained through the abdomen and pelvis following b olus infusion of 90 ml Omnipaque 350 (iohexol) nonionic water-soluble contrast as a single exam dos e. Prescribed oral contrast ingested. Using automated exposure control and adjustment of the mA and/ or kV according to patient size, radiation dose was kept as low as reasonably achievable to obtain op timal diagnostic quality images. DICOM format image data is available electronically for review and comparison. FINDINGS: Moderate severity acute diverticulitis seen of the proximal sigmoid colon in the anterior left lower quadrant. No abscess, perforation or obstruction. Liver is fatty infiltrated. Numerous benign hepatic cysts measuring up to 15 mm in size are again not ed. No biliary distention. CT appearance of the gallbladder is within normal limits. Subcentimeter low-density structure medially of the spleen is unchanged. Pancreas, adrenal glands and kidneys are within normal limits. There is atherosclerosis of the abdominal aorta. No aneurysm. No acute bony abnormality demonstrated. CONCLUSION: 1. Moderate severity uncomplicated acute diverticulitis of the sigmoid colon. 2. Fatty liver. Stable hepatic cysts. Electronically signed by: Vaibhav Plaza MD Board Certified Radiologist 09/23/2018 2:02 AM EST
[2018-09-23] MEDS ORDERED: Lisinopril 10 MG Tablet PO ONE (03:17)
[2018-09-23] MEDS ORDERED: Bisacodyl 10 MG Supp RECTAL PRN (03:19)
[2018-09-23] MEDS ORDERED: Acetaminophen 325 MG Tablet PO PRN (03:19)
[2018-09-23] MEDS: Ciprofloxacin 400 MG/200 ML 400 MG/200 ML PIGGYBACK IV.SIG SCH ×2 (03:54→16:31)
[2018-09-23] MEDS: Dextrose 5%/NaCl 0.45% Inj 1,000 ML IV.CONT SCH ×3 (05:00→23:17)
[2018-09-23] MEDS: Sod Chloride 0.9% Inj 1,000 ML IV.CONT SCH ×3 (05:02→23:20)
[2018-09-23] MEDS: Heparin - SQ 10,000 UNITS/ML Vial SQ SCH ×2 (05:03→16:32)
[2018-09-23] MEDS: Morphine Inj 4 MG/ML Vial IV.PUSH PRN ×2 (05:53→10:05)
[2018-09-23] MEDS: Senna/Docusate Sodium 8.6/50 MG Tablet PO SCH ×2 (08:32→20:17)
--- NOTE | 2018-09-23 12:13 | P.HPIM ---
History of Present Illness Primary Care Physician: Isaura Kilpatrick MD History of Present Illness: 73-year-old male with a history of hypertension, prostate cancer, BPH, history of diverticulitis in the past with perforation who presents with a 4-day history of constant crampy nonradiating bilateral lower quadrant abdominal pain , generalized fatigue. He also reports constipation, passing "samy". He denies any fevers, chills, chest pain, shortness of breath. He does report nausea and vomiting yesterday prior to admission. He called his primary care provider and was prescribed Cipro and Flagyl which he took, however the pain did not get better. Review of Systems All other systems reviewed negative except as stated in HPI PMFSH - History History Provided By: Patient - Medical History Medical History: Medical History (Last Reviewed 09/23/18 @ 12:08 by Mack Jiménez MD) Diverticulitis large intestine w/o perforation or abscess w/bleeding Hypertension Prostate CA - Surgical History Surgical History: Surgical History (Last Updated 09/23/18 @ 12:10 by Mack Jiménez MD) History of cervical sympathectomy Hx of prostate biopsy - Family History Family History: Family History (Last Updated 09/23/18 @ 12:10 by Mack Jiménez MD) Mother Heart disease Mother Heart disease Father Heart disease - Tobacco History Second Hand Smoke Exposure: No Smoking Status: Never smoker - Alcohol History How Often Do You Have a Drink Containing Alcohol: Never - Substance Use History Substance History: No History of Abuse - Travel History Recent Travel in the [place] Within the Last 8 Weeks: No Recent Travel Out of the Country Within the Last 8 Weeks: No - Immunization History Tetanus Immunization: <5 Years Medications and Allergies Active Medications: Active Medications Acetaminophen (Tylenol) 650 mg PO Q4H PRN PRN Reason: Temp > 100.4 Al Hydroxide/Mg Hydroxide (Milk Of Magnesia Liq) 30 ml PO Q12H PRN PRN Reason: Mild Constipation Bisacodyl (Dulcolax Supp) 10 mg RECTAL DAILY PRN PRN Reason: SEVERE CONSITIPATION Heparin Sodium (Porcine) (Heparin Inj) 5,000 units SQ Q12H MADDY Last Admin: 09/23/18 05:03 Dose: 5,000 units Dextrose/Sodium Chloride (D5w/1/2 Ns Inj) 1,000 mls @ 100 mls/hr IV.CONT .Q10H MADDY Last Admin: 09/23/18 05:00 Dose: 100 mls/hr Ciprofloxacin/Dextrose (Cipro 400 Mg/200 Ml Inj) 400 mg in 200 mls @ 200 mls/ hr IV.SIG Q12H [facility] Last Infusion: 09/23/18 05:09 Dose: Infused Metronidazole/Sodium Chloride (Flagyl 500 Mg Inj) 100 mls @ 100 mls/hr IV.SIG Q8H [facility] Last Infusion: 09/23/18 06:38 Dose: Infused Sodium Chloride (Ns Inj) 1,000 mls @ 100 mls/hr IV.CONT .Q10H [facility] Last Admin: 09/23/18 05:02 Dose: Not Given Lactulose (Lactulose Liq) 30 ml PO DAILY PRN PRN Reason: SEVERE CONSITIPATION Morphine Sulfate (Morphine Inj) 2 mg IV.PUSH Q4H PRN PRN Reason: pain > 4 Last Admin: 09/23/18 10:05 Dose: 2 mg Ondansetron HCl (Zofran Inj) 4 mg IV.PUSH Q6H PRN PRN Reason: NAUSEA OR VOMITING Senna/Docusate Sodium (Sandra-Colace) 1 tab PO BID [facility] Last Admin: 09/23/18 08:32 Dose: 1 tab Sennosides (Senokot) 17.2 mg PO Q12H PRN PRN Reason: Moderate Constipation Sodium Chloride (Ns Flush) 2 ml IV.FLUSH BID [facility] Last Admin: 09/23/18 08:33 Dose: Not Given Sodium Chloride (Ns Flush) 2 ml IV.FLUSH PRN PRN PRN Reason: FLUSH AFTER USING IV ACCESS Allergies Allergy/AdvReac Type Severity Reaction Status Date / Time cyclobenzaprine Allergy Severe ABD Verified 07/06/17 15:34 PROBLEMS Penicillins Allergy Severe Anaphylaxis Verified 07/06/17 15:34 Home Medications Medication Instructions Recorded Confirmed Type finasteride 5 mg PO DAILY 09/22/18 09/22/18 History lisinopril 10 mg PO DAILY 09/22/18 09/22/18 History ranitidine HCl 150 mg PO DAILY 09/22/18 09/22/18 History tamsulosin 0.4 mg PO DAILY 09/22/18 09/22/18 History Exam Vital signs: Vital Signs 09/22/18 22:20 09/23/18 02:43 09/23/18 04:41 Temperature 98.3 F Pulse Rate 89 75 78 Respiratory Rate 18 16 16 Blood Pressure 190/89 H 140/72 145/82 H Pulse Oximetry 96 100 09/23/18 05:24 09/23/18 08:00 09/23/18 11:31 Temperature 97.9 F 98.7 F Pulse Rate 74 75 Respiratory Rate 18 20 20 Blood Pressure 134/80 149/91 H Pulse Oximetry 95 98 Intake & Output 09/22/18 09/23/18 09/23/18 18:59 06:59 18:59 Intake Total 800 / 800 Balance 800 / 800 Weight 83.5 kg Intake: IV 800 / 800 Cipro 400 MG/200 ML Inj 400 mg 200 / 200 In 200 ml @ 200 mls/hr IV.SIG Q12H MADDY Rx#:[id number] NS Inj 500 ML @ Wide Open IV. 500 / 500 SIG BOLUS ONE Rx#:[id number] Flagyl 500 MG Inj 100 ML @ 100 100 / 100 mls/hr IV.SIG Q8H MADDY Rx#: [id number] Other: # Voids 0 Date of Last Bowel Movement 09/22/18 09/22/18 Weight On Admission 84.302 kg Narrative: GENERAL: Patient lying in bed. Sleeping, wakes up for exam. Appears uncomfortable. SKIN: Warm and dry. HEAD: Atraumatic. Normocephalic. EYES: Pupils equal and round. No scleral icterus. No injection or drainage. ENT: No nasal bleeding or discharge. Mucous membranes pink and moist. NECK: Trachea midline. No JVD. CARDIOVASCULAR: Regular rate and rhythm. RESPIRATORY: No accessory muscle use. Clear to auscultation. Breath sounds equal bilaterally. GASTROINTESTINAL: Abdomen soft, nondistended. Tender to mild palpation in bilateral lower quadrants. No rebound or guarding. Hepatic and splenic margins not palpable. MUSCULOSKELETAL: Extremities without clubbing, cyanosis, or edema. No obvious deformities. NEUROLOGICAL: Awake and alert. No obvious cranial nerve deficits. Motor grossly within normal limits. Five out of 5 muscle strength in the arms and legs. Normal speech. PSYCHIATRIC: Appropriate mood and affect; insight and judgment normal. Results - Labs CBC & Chem 7: 09/22/18 23:07 09/22/18 23:07 Labs: Short CBC 09/22/18 Range/Units 23:07 WBC 8.6 (4.0-11.0) th/mm3 Hgb 15.1 (13.0-17.0) gm/dL Hct 43.7 (39.0-51.0) % Plt Count 168 (150-450) th/mm3 BMP 09/22/18 23:07 Sodium 138 Potassium 3.7 Chloride 105 Carbon Dioxide 25.6 BUN 18 Creatinine 1.20 Calcium 8.5 Liver Function 09/22/18 Range/Units 23:07 Total Bilirubin 1.2 H (0.2-1.0) mg/dL AST 21 (15-37) U/L ALT 33 (12-78) U/L Alkaline Phosphatase 82 (45-117) U/L Albumin 3.2 L (3.4-5.0) g/dL - Imaging Impressions Abdomen/Pelvis CT 09/23/18 00:02 CONCLUSION: 1. Moderate severity uncomplicated acute diverticulitis of the sigmoid colon. 2. Fatty liver. Stable hepatic cysts. Caprini VTE Risk Assessment Caprini VTE Risk Assessment: Moderate/High Risk (score >= 2) Caprini Risk Assessment Model: Point Value = 1 Point Value = 2 Point Value = 3 Point Value = 5 Age 41-60 Minor surgery BMI > 25 kg/m2 Swollen legs Varicose veins or History of unexplained or recurrent spontaneous Oral contraceptives or hormone replacement Sepsis (< 1 month) Serious lung disease, including pneumonia (< 1 month) Abnormal pulmonary function Acute myocardial infarction Congestive heart failure (< 1 month) History of inflammatory bowel disease Medical patient at bed rest Age 61-74 Arthroscopic surgery Major open surgery (> 45 min) Laparoscopic surgery (> 45 min) Malignancy Confined to bed (> 72 hours) Immobilizing plaster cast Central venous access Age >= 75 History of VTE Family history of VTE Factor V Leiden Prothrombin [id number] Lupus anticoagulant Anticardiolipin antibodies Elevated serum homocysteine Heparin-induced thrombocytopenia Other congenital or acquired thrombophilia Stroke (< 1 month) Elective arthroplasty Hip, pelvis, or leg fracture Acute spinal cord injury (< 1 month) Prophylaxis Regimen: Total Risk Factor Score Risk Level Prophylaxis Regimen 0-1 Low Early ambulation 2 Moderate Order ONE of the following: *Sequential Compression Device (SCD) *Heparin 5000 units SQ BID 3-4 Higher Order ONE of the following medications: *Heparin 5000 units SQ TID *Enoxaparin/Lovenox 40 mg SQ daily (WT < 150 kg, CrCl > 30 mL/min) *Enoxaparin/Lovenox 30 mg SQ daily (WT < 150 kg, CrCl > 10-29 mL/min) *Enoxaparin/Lovenox 30 mg SQ BID (WT < 150 kg, CrCl > 30 mL/min) AND/OR *Sequential Compression Device (SCD) 5 or more Highest Order ONE of the following medications: *Heparin 5000 units SQ TID (Preferred with Epidurals) *Enoxaparin/Lovenox 40 mg SQ daily (WT < 150 kg, CrCl > 30 mL/min) *Enoxaparin/Lovenox 30 mg SQ daily (WT < 150 kg, CrCl > 10-29 mL/min) *Enoxaparin/Lovenox 30 mg SQ BID (WT < 150 kg, CrCl > 30 mL/min) AND *Sequential Compression Device (SCD) Assessment and Plan - Plan //Acute on chronic sigmoid diverticulitis. -CT abdomen reviewed with moderate severity uncomplicated acute diverticulitis of the sigmoid colon -Did get 1 dose of Cipro and Flagyl as outpatient prior to admission without improvement. -We will continue symptomatic management, IV antibiotics. Will start daily MiraLAX due to what appears to be chronic constipation. //Hypertension. Blood pressure acceptable. Will hold off on blood pressure medications at this time. Will however start tamsulosin as below. Monitor closely //GERD. Continue home medication. //BPH //Prostate cancer Continue finasteride and tamsulosin. //Chronic fatty liver. Stable hepatic cyst. Follow-up with primary care as outpatient. Discussed Condition With: Patient, nurse H&P: Quality - VTE Deep Vein Thrombosis/Pulmonary Embolism Present on Admission: No
[2018-09-23] MEDS: Polyethylene Glycol 3350 17 GM Packet PO SCH (13:17)
[2018-09-23] MEDS: Famotidine 20 MG Tablet PO SCH (20:17)
[2018-09-24] MEDS: Ciprofloxacin 400 MG/200 ML 400 MG/200 ML PIGGYBACK IV.SIG SCH (02:53)
[2018-09-24] MEDS: Heparin - SQ 10,000 UNITS/ML Vial SQ SCH (02:59)
[2018-09-24] MEDS: Polyethylene Glycol 3350 17 GM Packet PO SCH (08:40)
[2018-09-24] MEDS: Senna/Docusate Sodium 8.6/50 MG Tablet PO SCH (08:41)
[2018-09-24] MEDS: Famotidine 20 MG Tablet PO SCH (08:41)
[2018-09-24] MEDS: Sod Chloride 0.9% Inj 1,000 ML IV.CONT SCH (08:41)
[2018-09-24] MEDS: Dextrose 5%/NaCl 0.45% Inj 1,000 ML IV.CONT SCH (08:42)
[2018-09-24] MEDS ORDERED: Finasteride 5 MG Tablet PO SCH (09:00)
[2018-09-24 10:50] LABS: Baso % (Auto) 0.9 % (0.0-2.0); Eos # (Auto) 0.1 th/mm3 (0.0-0.4); Eos % (Auto) 1.8 % (0.0-4.0); Hematocrit 39.8 % (39.0-51.0); Hemoglobin 13.6 gm/dL (13.0-17.0); Lymph # (Auto) 1.1 th/mm3 (1.0-4.8); Lymph % (Auto) 22.6 % (9.0-44.0); Mean Corpuscular HGB Conc 34.1 % (32.0-36.0); Mean Corpuscular Hemoglobin 31.5 pg (27.0-34.0); Mean Corpuscular Volume 92.5 fL (80.0-100.0); Mean Platelet Volume 7.6 fL (7.0-11.0); Mono # (Auto) 0.6 th/mm3 (0.0-0.9); Mono % (Auto) 11.7 % (0.0-8.0); Platelet Count 177 th/mm3 (150-450); Red Cell Distribution Width 11.8 % (11.6-17.2); White Blood Count 4.8 th/mm3 (4.0-11.0)
[2018-09-24 10:56] LABS: Potassium 4.4 meq/L (3.5-5.1)
[2018-09-24 11:00] LABS: Albumin 2.8 g/dL (3.4-5.0); Calcium 8.4 mg/dL (8.5-10.1); Carbon Dioxide 28.4 meq/L (21.0-32.0); Magnesium 2.2 mg/dL (1.5-2.5)
[2018-09-24 11:03] LABS: Phosphorus 2.6 mg/dL (2.5-4.9)
[2018-09-24 11:04] LABS: Total Protein 6.1 g/dL (6.4-8.2)
--- NOTE | 2018-09-24 11:24 | P.PNIM ---
Subjective Interval history: Doing well. Reports pain is resolved. Says he would like to go home. Physical Exam Vital signs: Vital Signs 09/23/18 11:31 09/23/18 12:00 09/23/18 16:00 Temperature 97.7 F 96.3 F L Pulse Rate 71 67 Respiratory Rate 20 20 20 Blood Pressure 144/90 H 156/82 H Pulse Oximetry 97 98 09/23/18 20:00 09/24/18 00:00 Temperature 97.6 F 97.9 F Pulse Rate 73 84 Respiratory Rate 18 17 Blood Pressure 180/90 H 139/81 Pulse Oximetry 95 96 Intake & Output 09/23/18 09/24/18 09/24/18 18:59 06:59 18:59 Intake Total 2260 / 2260 1400 / 1400 1000 / 1000 Balance 2260 / 2260 1400 / 1400 1000 / 1000 Intake: IV 1300 / 1300 1400 / 1400 1000 / 1000 D5W/1/2 NS Inj 1,000 ML @ 100 1000 / 1000 1000 / 1000 1000 / 1000 mls/hr IV.CONT .Q10H MADDY Rx#: [id number] Cipro 400 MG/200 ML Inj 400 mg 200 / 200 200 / 200 In 200 ml @ 200 mls/hr IV.SIG Q12H MADDY Rx#:[id number] Flagyl 500 MG Inj 100 ML @ 100 100 / 100 200 / 200 mls/hr IV.SIG Q8H MADDY Rx#: [id number] Oral 960 / 960 Other: # Voids 3 2 Date of Last Bowel Movement 09/22/18 09/22/18 Narrative: GENERAL: Patient sitting up in bed. Appears comfortable. Alert and oriented x4. SKIN: Warm and dry. HEAD: Normocephalic. EYES: No scleral icterus. No injection or drainage. NECK: Supple, trachea midline. No JVD or lymphadenopathy. CARDIOVASCULAR: Regular rate and rhythm without murmurs, gallops, or rubs. RESPIRATORY: Breath sounds equal bilaterally. No accessory muscle use. GASTROINTESTINAL: Abdomen soft, non-tender, nondistended. MUSCULOSKELETAL: No cyanosis, or edema. BACK: Nontender without obvious deformity. No CVA tenderness. Results - Labs CBC & Chem 7: 09/24/18 10:31 09/24/18 10:31 Laboratory Results - last 24 hr 09/22/18 09/24/18 09/24/18 23:07 10:31 10:31 CBC w Diff Auto diff final WBC 4.8 RBC 4.30 L Hgb 13.6 Hct 39.8 MCV 92.5 MCH 31.5 MCHC 34.1 RDW 11.8 Plt Count 177 MPV 7.6 Neut % (Auto) 63.0 Lymph % (Auto) 22.6 [place] % (Auto) 11.7 H Eos % (Auto) 1.8 Baso % (Auto) 0.9 Neut # (Auto) 3.0 Lymph # (Auto) 1.1 Jack # (Auto) 0.6 Eos # (Auto) 0.1 Baso # (Auto) 0.0 WBC Differential . Differential Comment . Sodium 141 Potassium 4.4 Chloride 107 Carbon Dioxide 28.4 Anion Gap 6 BUN 12 Creatinine 1.10 Estimated GFR 66 L Random Glucose 98 Calcium 8.4 L Phosphorus 2.6 Magnesium 2.2 Total Bilirubin 0.7 Direct Bilirubin 0.2 0.1 Indirect Bilirubin 0.6 AST 15 ALT 26 Alkaline Phosphatase 68 Total Protein 6.1 L D Albumin 2.8 L Microbiology 09/22/18 23:00 Blood - Peripheral Aerobic Blood Culture - Preliminary No growth in 2 days 09/22/18 23:00 Blood - Peripheral Anaerobic Blood Culture - Preliminary No growth in 2 days 09/22/18 23:07 Blood - Peripheral Aerobic Blood Culture - Preliminary No growth in 2 days 09/22/18 23:07 Blood - Peripheral Anaerobic Blood Culture - Preliminary No growth in 2 days Assessment and Plan - Plan //Acute on chronic sigmoid diverticulitis. -CT abdomen reviewed with moderate severity uncomplicated acute diverticulitis of the sigmoid colon -Did get 1 dose of Cipro and Flagyl as outpatient prior to admission without improvement. -We will continue symptomatic management, IV antibiotics. Will start daily MiraLAX due to what appears to be chronic constipation. = Discharge home on MiraLAX daily, to be titrated up or down as needed to maintain 1 soft bowel movement per day, as well as course of Cipro, Flagyl. Referral to gastroenterology as outpatient. //Hypertension. Blood pressure acceptable. Will hold off on blood pressure medications at this time. Will however start tamsulosin as below. Monitor closely = Blood pressure elevated this morning. Restart home medications. //GERD. Continue home medication. //BPH //Prostate cancer Continue finasteride and tamsulosin. //Chronic fatty liver. Stable hepatic cyst. Follow-up with primary care as outpatient. Discussed Condition With: Patient, nurse Discharge Planning: Discharge home in good condition. Diverticulitis diet. Activity ad saima. Please see discharge medication reconciliation for medication list. Follow-up with primary care, referral to gastroenterology as outpatient.
[2018-09-24 13:51] VITALS: RESP 20
[2018-09-24 13:52] VITALS: BP 147/70; PULSE 65; TEMP 97.2; O2SAT 95
== END 2018-09-24 12:54 | disposition home or self-care (01) | DRG 392 ==
LOC: PHEDA 22:11 → PHED 22:11 → PH3 09-23 04:36
PROVIDERS: ADMIT Internal Medicine; ATTEND Internal Medicine
CPT/HCPCS: 74177; 80053; 80069; 80076; 82248; 83605; 83690; 83735; 85025; 87040; 90761; 90774; 90775; 96361; 96374; 96375; 99285; C8952; J0744; J1644; J2270; J2405; J7040; Q9963; Q9967